=== PATIENT | female | born 1985 | race African-American/Black ===

== ENCOUNTER 2023-07-16 10:10 | Day surgery (SDC) | payer OTHER ==
[2023-07-11 14:51] VITALS: BMI 54.7
[2023-07-16 12:47] VITALS: RESP 20; TEMP 97.4
[2023-07-16 13:00] VITALS: BP 129/74; PULSE 72
== END 2023-07-16 13:11 | disposition home or self-care (01) ==
LOC: FASU-ENDO 10:10
PROVIDERS: ATTEND Internal Medicine Gastroenterology
PROC: 0DB68ZX Excision of Stomach, Via Natural or Artificial Opening Endoscopic, Diagnostic (ICD-10-PCS; 2023-07-16)
PROC: 0DB98ZX Excision of Duodenum, Via Natural or Artificial Opening Endoscopic, Diagnostic (ICD-10-PCS; principal; 2023-07-16 12:22)
DX: K29.50 Unspecified chronic gastritis without bleeding (principal)
CPT/HCPCS: 81025; 88305-TC; 88342-TC